=== PATIENT | female | born 1970 | race Caucasian/White ===

== ENCOUNTER → 2016-08-18 | Outpatient (CLI) | payer OTHER ==
--- NOTE | 2016-08-18 18:21 | MA ---
Screening Digital Mammogram With iCAD Indication: Routine screening. History of breast reduction surgery and surgical excision of fibroaden williams inner right breast in February 2016. Technique: Standard cephalocaudal and mediolateral oblique projections were obtained. This examinat ion was [facility]. Comparison: June 2015, June 2014, August 2013 and April 2011. Breast density: Type B. Findings: CAD was reviewed. The solid nodule in the inner right breast has been surgically removed. T he biopsy clip resides in the anterior inner right breast. No malignant-type calcification, dominant mass or architectural distortion has developed in either breast. Impression: Benign mammograms. BI-RADS 2: Benign finding. Recommendation: Routine screening is recommended in one year. [facility] will send a result letter to the patient. Negative mammography should not preclude additional workup of a clinically suspicious finding. The patient's information is entered into a reminder system with a target due date for her next mammo gram.
== END ==
LOC: FIMAGING 15:04
DX: Z12.31 Encounter for screening mammogram for malignant neoplasm of breast (principal); Z86.018 Personal history of other benign neoplasm
CPT/HCPCS: G0202

== ENCOUNTER 2017-02-16 17:03 | Emergency (ER) | payer OTHER ==
--- NOTE | 2017-02-16 17:11 | EDPHY ---
H & P Time Seen by Provider: 02/16/17 17:10 - Personal History Tetanus Vaccine Date: 2008 - Medical/Surgical History Hx Asthma: No Hx Chronic Respiratory Disease: No Hx Diabetes: No Hx Cardiac Disease: Yes Hx Renal Disease: No Hx Cirrhosis: No Hx Alcoholism: No Hx HIV/AIDS: No Hx Splenectomy or Spleen Trauma: No Other PMH: Blind, reynaud's, high cholesterol, vitamin d deficiency; breast reduction; fractured Great R toe - Social History Smoking Status: Never smoked Constitutional: Initial Vital Signs Temperature (C) 36.8 C 02/16/17 17:08 Heart Rate 91 02/16/17 17:08 Respiratory Rate 16 02/16/17 17:08 O2 Sat (%) 95 02/16/17 17:08 O2 Delivery Mode Room Air Allergies/Adverse Reactions: NSAIDS (Non-Steroidal Anti-Inflamma Allergy (Verified 02/29/16 16:05) vancomycin Allergy (Verified 05/22/15 13:14) Home Medications: Medication Instructions Recorded Atorvastatin Calcium [Lipitor 40 40 mg PO DAILY06 04/06/15 mg (*)] Calcium Carbonate [Oyster Shell 500 mg PO DAILY 04/19/15 Calcium 500 mg (*)] Cholecalciferol Vit D3 [Vitamin D3 1,000 units PO DAILY 04/19/15 (*)] Multivitamins [Multivitamin (*)] 1 each PO DAILY 04/19/15 Medical Decision Making - Diagnostics Imaging: Discussed imaging studies w/ call centre supervisor Radiologist ED Course/Re-evaluation: CHIEF COMPLAINT: Abdominal pain HISTORY OF PRESENT ILLNESS: This patient is a 46 year old female complaining of right lower quadrant abdominal pain onset around 3:00am this morning. She often gets pain and cramping associated with her menstrual cycle, but states that her current pain is different and more constant. She denies nausea or dysuria. She was able to eat and drink prior to arrival. She endorses some urinary frequency. She denies history of abdominal surgery. No fever, chills, vomiting, or other associated symptoms. REVIEW OF SYSTEMS: A 10 point review of systems was performed and is negative with the exception of the elements mentioned in the history of present illness. PHYSICAL EXAM: HR, BP, O2 Sat, RR. Temp noted General Appearance: Alert, well hydrated, appropriate, and non-toxic appearing. Head: Atraumatic without scalp tenderness or obvious injury Eyes: Pupils equal, round, reactive to light and accommodation, EOMI, no trauma , no injection. Ears: Clear bilaterally, no perforation, normal landmarks Nose: Atraumatic, no rhinorrhea, clear. Throat: There is no erythema or exudates, no lesions, normal tonsils, mucus membranes moist. Neck: Supple, nontender, no lymphadenopathy. Respiratory: No retractions, no distress, no wheezes, and no accessory muscle use. Lungs are clear to auscultation bilaterally. Cardiovascular: Regular rate and rhythm, no murmurs, rubs, or gallops. Good capillary refill all extremities. Gastrointestinal: Positive McBurney's point tenderness. Abdomen is soft, non- distended, no masses, no rebound, no guarding, no peritoneal signs. Musculoskeletal: Normal active ROM of all extremities, atraumatic. Neurological: Alert, appropriate, and interactive. The patient has normal DTRs and non-focal cranial nerves, motor, sensory, and cerebellar exam. Skin: No rashes, good turgor, no nodules on palpation. Past medical history: Raynaud's syndrome. Lymphedema. Blind Past surgical history: Noncontributory Family history: Noncontributory Social history: Single, not employed, does not abuse tobacco drugs or alcohol, lives on her own, blind DIAGNOSTICS/PROCEDURES/CRITICAL CARE TIME: Study: CT of the abdomen and pelvis Indication: abdominal pain right lower quadrant with McBurney's point tenderness Results: CT scan of the abdomen and pelvis with contrast was obtained. The results of the study are normal. The study was read by the radiologist, Dr. Alvarado Null. I viewed the images myself on the PACS system. DIFFERENTIAL DIAGNOSIS: The differential diagnosis for the patient's abdominal pain included but was not limited to ovarian cyst, pelvic inflammatory disease, ovarian torsion, urinary tract infection, ectopic , cholecystitis, and appendicitis. MEDICAL DECISION MAKING: This patient initially had right lower quadrant abdominal pain. Her CBC is completely unremarkable. Chemistries unremarkable. She has no urinary symptoms. CT scan of her abdomen pelvis with IV contrast do not elucidate any acute process. This patient is completely pain-free on reexamination. She will follow up with her regular doctor as needed. - Data Points Laboratory Results: Laboratory Results 02/16/17 17:25 02/16/17 17:25 02/16/17 02/16/1702/16/17 18:10 17:25 17:25 WBC RBC Hgb Hct MCV MCH MCHC RDW Plt Count MPV Neut % (Auto) Lymph % (Auto) [place] % (Auto) Eos % (Auto) Baso % (Auto) Nucleat RBC Rel Count Absolute Neuts (auto) Absolute Lymphs (auto) Absolute Monos (auto) Absolute Eos (auto) Absolute Basos (auto) Absolute Nucleated RBC Immature Gran % Immature Gran # Sodium 135 mEq/L mEq/L (134-144) Potassium 4.0 mEq/L mEq/L (3.5-5.2) Chloride 104 mEq/L mEq/L (97-110) Carbon Dioxide 21 mEq/l L mEq/l (22-31) Anion Gap 10 mEq/L mEq/L (8-16) BUN 10 mg/dL mg/dL (7-23) Creatinine 0.9 mg/dL mg/dL (0.6-1.0) Estimated GFR > 60 Glucose 126 mg/dL H mg/dL (70-100) Calcium 9.6 mg/dL mg/dL (8.5-10.4) Total Bilirubin 1.0 mg/dL mg/dL (0.1-1.4) Conjugated Bilirubin 0.3 mg/dL mg/dL (0.0-0.5) Unconjugated Bilirubin 0.7 mg/dL mg/dL (0.0-1.1) AST 24 IU/L IU/L (14-46) ALT 33 IU/L IU/L (9-52) Alkaline Phosphatase 98 IU/L IU/L (38-126) Total Protein 7.5 g/dL g/dL (6.3-8.2) Albumin 4.0 g/dL g/dL (3.5-5.0) Lipase 47.0 IU/L IU/L (23-300) Beta HCG, Qual NEGATIVE Urine Color YELLOW Urine Appearance CLEAR Urine pH 6.0 (5.0-7.5) Ur Specific [place] 1.011 (1.002-1.030) Urine Protein NEGATIVE (NEGATIVE) Urine Ketones NEGATIVE (NEGATIVE) Urine Blood NEGATIVE (NEGATIVE) Urine Nitrate NEGATIVE (NEGATIVE) Urine Bilirubin NEGATIVE (NEGATIVE) Urine Urobilinogen NEGATIVE EU EU (0.2-1.0) Ur Leukocyte Esterase NEGATIVE (NEGATIVE) Urine RBC 1-3 /hpf /hpf (0-3) Urine WBC 1-3 /hpf /hpf (0-3) Ur Epithelial Cells TRACE /lpf /lpf (NONE-1+) Urine Bacteria 1+ /hpf H /hpf (NONE SEEN) Urine Mucus TRACE /lpf /lpf (NONE-1+) Urine Glucose NEGATIVE (NEGATIVE) 02/16/17 17:25 WBC 8.07 10^3/uL 10^3/uL (3.80-9.50) RBC 5.09 10^6/uL 10^6/uL (4.18-5.33) Hgb 15.5 g/dL g/dL (12.6-16.3) Hct 46.0 % % (38.0-47.0) MCV 90.4 fL fL (81.5-99.8) MCH 30.5 pg pg (27.9-34.1) MCHC 33.7 g/dL g/dL (32.4-36.7) RDW 12.6 % % (11.5-15.2) Plt Count 312 10^3/uL 10^3/uL (150-400) MPV 10.2 fL fL (8.7-11.7) Neut % (Auto) 71.4 % % (39.3-74.2) Lymph % (Auto) 21.7 % % (15.0-45.0) [place] % (Auto) 5.3 % % (4.5-13.0) Eos % (Auto) 0.7 % % (0.6-7.6) Baso % (Auto) 0.5 % % (0.3-1.7) Nucleat RBC Rel Count 0.0 % % (0.0-0.2) Absolute Neuts (auto) 5.76 10^3/uL 10^3/uL (1.70-6.50) Absolute Lymphs (auto) 1.75 10^3/uL 10^3/uL (1.00-3.00) Absolute Monos (auto) 0.43 10^3/uL 10^3/uL (0.30-0.80) Absolute Eos (auto) 0.06 10^3/uL 10^3/uL (0.03-0.40) Absolute Basos (auto) 0.04 10^3/uL 10^3/uL (0.02-0.10) Absolute Nucleated RBC 0.00 10^3/uL 10^3/uL (0-0.01) Immature Gran % 0.4 % % (0.0-1.1) Immature Gran # 0.03 10^3/uL 10^3/uL (0.00-0.10) Sodium Potassium Chloride Carbon Dioxide Anion Gap BUN Creatinine Estimated GFR Glucose Calcium Total Bilirubin Conjugated Bilirubin Unconjugated Bilirubin AST ALT Alkaline Phosphatase Total Protein Albumin Lipase Beta HCG, Qual Urine Color Urine Appearance Urine pH Ur Specific [place] Urine Protein Urine Ketones Urine Blood Urine Nitrate Urine Bilirubin Urine Urobilinogen Ur Leukocyte Esterase Urine RBC Urine WBC Ur Epithelial Cells Urine Bacteria Urine Mucus Urine Glucose Departure - Departure Disposition: Home, Routine, Self-Care Clinical Impression: Abdominal pain Qualifiers: Abdominal location: right lower quadrant Qualified Code(s): R10.31 - Right lower quadrant pain Condition: Good Instructions: Acute Abdominal Pain (ED) Additional Instructions: Return if worse Referrals: Lian Cameron MD [Primary Care Provider] - As per Instructions
[2017-02-16 17:12] VITALS: TEMP 98.2
[2017-02-16 17:40] VITALS: BP 157/99; RESP 20
[2017-02-16 17:51] LABS: % IMMATURE GRANULYOCYTES 0.4 % (0.0-1.1); ABSOLUTE IMMATURE GRANULOCYTES 0.03 10^3/uL (0.00-0.10); ADD DIFF? NO; ADD MORPH? NO; ADD SCAN? NO; ATYPICAL LYMPHOCYTE FLAG 10 (0-99); FRAGMENT RBC FLAG 0 (0-99); HEMOGLOBIN 15.5 g/dL (12.6-16.3); LEFT SHIFT FLG 0 (0-99); LIPEMIA HEMOLYSIS FLAG 80 (0-99); MEAN CELL HEMOGLOBIN 30.5 pg (27.9-34.1); MEAN CELL HEMOGLOBIN CONCENTR. 33.7 g/dL (32.4-36.7); MEAN CELL VOLUME 90.4 fL (81.5-99.8); MEAN PLATELET VOLUME 10.2 fL (8.7-11.7); PLATELET CLUMPS FLAG 0 (0-99); PLATELET COUNT 312 10^3/uL (150-400); RED BLOOD CELL COUNT 5.09 10^6/uL (4.18-5.33); RED CELL DISTRIBUTION WIDTH 12.6 % (11.5-15.2)
[2017-02-16 18:12] LABS: ALANINE AMINOTRANSFERASE 33 IU/L (9-52); ALKALINE PHOSPHATASE 98 IU/L (38-126); ANION GAP 10 mEq/L (8-16); ASPARTATE AMINOTRANSFERASE 24 IU/L (14-46); BILIRUBIN-CONJUGATED 0.3 mg/dL (0.0-0.5); BILIRUBIN-UNCONJUGATED 0.7 mg/dL (0.0-1.1); CALCIUM 9.6 mg/dL (8.5-10.4); CARBON DIOXIDE 21 mEq/l (22-31); CHLORIDE 104 mEq/L (97-110); CREATININE 0.9 mg/dL (0.6-1.0); GLOMERULAR FILTRATION RATE > 60; GLUCOSE 126 mg/dL (70-100); SODIUM 135 mEq/L (134-144); TOTAL PROTEIN 7.5 g/dL (6.3-8.2)
[2017-02-16] MEDS ORDERED: IOPAMIDOL (ISOVUE-300) 100 ML BTL ONE (18:15)
[2017-02-16 18:48] LABS: COLOR YELLOW; LEUKOCYTE ESTERASE,URINE NEGATIVE (NEGATIVE); NITRITE,URINE NEGATIVE (NEGATIVE)
[2017-02-16 18:51] LABS: BACTERIA 1+ /hpf (NONE SEEN); MUCUS TRACE /lpf (NONE-1+)
[2017-02-16 19:10] VITALS: PULSE 66; O2SAT 96
== END 2017-02-16 19:10 | disposition home or self-care (01) ==
DX: R10.31 Right lower quadrant pain (principal)
CPT/HCPCS: Q9967

== ENCOUNTER 2017-09-22 07:35 | Observation (INO) | payer OTHER ==
[2017-09-22] MEDS ORDERED: LIDOCAINE 1% 2 ML INJ ID PRN (07:46)
[2017-09-22] MEDS ORDERED: LR 1,000 ML IV ONE (07:46)
[2017-09-22] MEDS ORDERED: BUPIVACAINE 0.25% 30 ML SDV ONE (07:52)
[2017-09-22] MEDS ORDERED: MIDAZOLAM 2 MG/2 ML VIAL IVP ONE ×2 (08:26→08:30)
--- NOTE | 2017-09-22 08:26 | PDANEPAE ---
ANE History of Present Illness here for robotic hyst ANE Past Medical History - Cardiovascular History Hx Hypertension: No Hx Arrhythmias: No Hx Chest Pain: No Hx Coronary Artery / Peripheral Vascular Disease: No Hx CHF / Valvular Disease: No Hx Palpitations: No Cardiovascular History Comment: high chol- controls with medications prn - Pulmonary History Hx COPD: No Hx Asthma/Reactive Airway Disease: No Hx Recent Upper Respiratory Infection: No Hx Oxygen in Use at Home: No Hx Sleep Apnea: No Sleep Apnea Screening Result - Last Documented: Negative - Neurologic History Hx Cerebrovascular Accident: No Hx Seizures: No Hx Dementia: No - Endocrine History Hx Diabetes: No - Renal History Hx Renal Disorders: Yes Renal History Comment: vanco compromises kidneys. compromised d/t medications a couple years ago - Liver History Hx Hepatic Disorders: No - Neurological & Psychiatric Hx Hx Neurological and Psychiatric Disorders: No - Cancer History Hx Cancer: No - Congenital Disorder History Hx Congenital Disorders: No - GI History Hx Gastrointestinal Disorders: No - Other Health History Other Health History: CELLULITIS AND FASCITIS LLE 03/2015. RANYAUD. INTERMITTENT LYMPHEDEMA LLE USES PRESSURE STOCKING ON LT. LOW BACK PAIN. VITAMIN D DEFICIENCY - Chronic Pain History Chronic Pain: No - Surgical History Prior Surgeries: KAYA BREAST REDUCTION. lumpectomy ANE Review of Systems Review of systems is: negative Review of Systems: - Exercise capacity Exercise capacity: >=4 METS METS (RN): 4 METS ANE Patient History - Allergies Allergies/Adverse Reactions: NSAIDS (Non-Steroidal Anti-Inflamma Allergy (Verified 09/08/17 11:52) d/t compromised kidneys vancomycin Allergy (Verified 09/08/17 11:52) comprises kidneys - Home Medications Home medications: home medication list seen and reviewed Home Medications: Atorvastatin Calcium [Lipitor 40 mg (*)] 40 mg PO DAILY 04/06/15 [Last Taken 05/30] Cholecalciferol Vit D3 [Vitamin D3 (*)] 1,000 units PO DAILY 04/19/15 [Last Taken 09/15/17] Multivitamins [Multivitamin (*)] 1 each PO DAILY 04/19/15 [Last Taken 09/15/17] Ferrous Sulfate [Ferrous Sulf 325 MG (*)] 325 mg PO DAILY 09/08/17 [Last Taken 09/15/17] Herbals/Supplements -Info Only 1 ea PO DAILY 09/08/17 [Last Taken 09/15/17] - NPO status NPO Status: no food or drink >8 hours NPO Since - Liquids (Date): 09/22/17 NPO Since - Liquids (Time): 01:00 NPO Since - Solids (Date): 09/21/17 NPO Since - Solids (Time): 23:00 - Smoking Hx Smoking Status: Never smoked - Family Anes Hx Family Hx Anesthesia Complications: none ANE Labs/Vital Signs - Vital Signs Height: 160.02 cm Weight: 120.202 kg ANE Physical Exam - Airway Neck exam: FROM Mallampati Score: Class 2 Mouth exam: normal dental/mouth exam - Pulmonary Pulmonary: no respiratory distress - Cardiovascular Cardiovascular: regular rate and rhythym - ASA Status ASA Status: III ANE Anesthesia Plan Anesthesia Plan: general endotracheal anesthesia
[2017-09-22] MEDS ORDERED: ceFAZolin 3 GM in STERILE WATER INJ 30 ML IV ONE (08:30)
[2017-09-22] MEDS ORDERED: PHENAZOPYRIDINE HCL 100 MG TAB PO ONE (08:30)
[2017-09-22] MEDS ORDERED: HEPARIN 5,000 UNIT/0.5 ML SYR SC ONE (08:30)
[2017-09-22] MEDS ORDERED: fentaNYL 250 MCG/5 ML INJ ONE (09:00)
[2017-09-22] MEDS ORDERED: PROPOFOL/EMULSION 500 MG/50 ML BOTTLE IV ONE (09:02)
--- NOTE | 2017-09-22 09:18 | PDGENHP ---
History & Physical Chief Complaint: Preop: Endometrial hyperplasia, simple, without atypia History of Present Illness: Michelle is a very pleasant 47 yo female who I've been working with in clinic on new/evolving AUB. She had a pelvic US that revealed generally normal-sized uterus, no obvious polyps or fibroids. She had an EBx in the office that came back ultimately with Endometrial hyperplasia, simple, without atypia. Discussed options of Mirena vs progestin tx vs hysterectomy and she'd much prefer to have uterus removed. She has quite debilitating mid-cycle [place] pain and would also like ovaries removed. Discussed risks and benefits of this given her age and pre-menopausal status. Pertinent Past, Social, Family History: See full H&P, Morbid obesity, blindness. Relevant Physical Exam: From office: NAD. Regular rate and rhythm, lungs clear bilaterally. Belly soft, non-distended, non-tender. Assessment & Plan Assessment: Preop: Robotically-assisted TLH, BSO, cystoscopy. Extensive discussion on R/B/A in the office. Patient strongly prefers definitive tx with hysterectomy. Discussed R/B/A of oophorectomy at her age and she'd strongly prefer ovary removal. Discussed increased risks intraoperatively due to her size, discussed possibility of needing to convert to open. Preop meds: Pyridium 100mg PO x 1 PREOP, Weight-based Ancef, heparin SubQ 5k preop. Plan for one night stay in hospital and home AM of POD1. DEBBIE
[2017-09-22] MEDS ORDERED: ONDANSETRON 4 MG/2 ML VIAL ONE (09:56)
[2017-09-22] MEDS ORDERED: DEXAMETHASONE 4 MG/ML VIAL ONE (09:56)
[2017-09-22] MEDS ORDERED: BUPIVACAINE/EPI 0.5% 30 ML SDV ONE (10:17)
[2017-09-22] MEDS ORDERED: PROMETHAZINE HCL 25 MG/ML INJ IVP PRN (10:55)
[2017-09-22] MEDS ORDERED: ALBUTEROL 3 ML DEYVIAL IH PRN (10:55)
[2017-09-22] MEDS ORDERED: LR 500 ML IV PRN (10:55)
[2017-09-22] MEDS ORDERED: NS 500 ML IV PRN (10:55)
[2017-09-22] MEDS ORDERED: ONDANSETRON 4 MG/2 ML VIAL IVP PRN ×2 (10:55→15:33)
[2017-09-22] MEDS ORDERED: NALOXONE HCL 0.4 MG/ML INJ IVP PRN ×2 (10:55→13:02)
[2017-09-22] MEDS ORDERED: LABETALOL HCL 5 MG/ML 20 ML MDV ONE ×2 (11:36→11:37)
[2017-09-22] MEDS ORDERED: SUGAMMADEX SODIUM 200 MG/2 ML VIAL IVP ONE ×2 (12:36→12:42)
[2017-09-22] MEDS ORDERED: LABETALOL HCL 5 MG/ML 20 ML MDV IVP PRN (13:02)
[2017-09-22] MEDS ORDERED: HYDROmorphONE/DILAUDID 2 MG/ML INJ ONE (13:07)
[2017-09-22] MEDS ORDERED: fentaNYL 100 MCG/2 ML INJ ONE (13:07)
[2017-09-22] MEDS: HYDROmorphONE/DILAUDID 1 MG/ML INJ IVP PRN ×4 (13:10→14:11)
[2017-09-22] MEDS: fentaNYL 100 MCG/2 ML INJ IVP PRN ×2 (13:11→13:33)
[2017-09-22] MEDS ORDERED: ONDANSETRON DISINTEGRATING 4 MG TAB PO PRN (15:33)
[2017-09-22] MEDS ORDERED: MAGNESIUM HYDROXIDE 30 ML UDCUP PO PRN (15:33)
[2017-09-22] MEDS ORDERED: POLYETHYLENE GLYCOL 3350 17 GM PKT PO PRN (15:33)
[2017-09-22] MEDS ORDERED: LACTULOSE 20 GM/30 ML UDCUP PO PRN (15:33)
[2017-09-22] MEDS ORDERED: LR 1,000 ML IV SCH (15:33)
[2017-09-22] MEDS ORDERED: BISACODYL 10 MG SUPP PR PRN (15:33)
[2017-09-22] MEDS: OXYCODONE/APAP 5/325 TAB PO PRN ×2 (16:15→22:07)
[2017-09-22] MEDS: KETOROLAC 30 MG/1 ML SDV IVP SCH ×2 (17:01→23:59)
[2017-09-22] MEDS ORDERED: HYDROmorphONE/DILAUDID 2 MG/ML INJ IVP PRN (17:15)
--- NOTE | 2017-09-22 17:22 | POSTOPPROG ---
Post Op Note Date of Operation: 09/22/17 Surgeon: Arpit Long Junior Copywriter: ALYSON Flynn Anesthesia: GET(General Endotracheal) Pre-op Diagnosis: Simple endometrial hyperplasia, without atypia, AUB Post-op Diagnosis: Same, endometriosis, intra-abdominal adhesions Indication: Pelvic pain, abnormal uterine bleeding Procedure: Robotically-assisted TLH, BSO, cystoscopy Findings: Stage I endometriosis, otherwise normal anatomy Inf/Abcess present in the surg proc area at time of surgery?: No EBL: 100cc Complications: None Specimen(s): Uterus, cervix, bilateral tubes and ovaries
--- NOTE | 2017-09-22 17:27 | SUROPNOTE ---
[facility] Operative Report - Surgery Date of Operation: 09/22/17 Surgeon: Arpit Long MD Retail Greeting Card Merchandiser: ALYSON Flynn Anesthesia: GET(General Endotracheal) Pre-op Diagnosis: Simple endometrial hyperplasia, without atypia, AUB Post-op Diagnosis: Same, endometriosis, intra-abdominal adhesions Indication: Pelvic pain, abnormal uterine bleeding, Simple endometrial hyperplasia without atypia Procedure: Robotically-assisted TLH, BSO, cystoscopy Findings: Normal visible aspects of liver, stomach, large and small intestine. Slightly enlarged boggy uterus, normal right tube and ovary. Right ovary with small power-burn lesions suspicious for endometriosis. Left tube and ovary adherent to the left ovarian fossa in adhesion complex also appearing consistent with endometriosis. Peritoneal layers thick and fibrosed - possibly due to long standing inflammation. No ovarian cysts, did not visualize appendix. Inf/Abcess present in the surg proc area at time of surgery?: No EBL: 100cc Complications: None Specimen(s): Uterus, cervix, bilateral tubes and ovaries Technique: The patient was taken to the operating room where general anesthesia induced with an endotracheal tube. A time-out was performed. She was given weight-based antibiotics before any incisions were made. She was positioned in low lithotomy in yellow-fin stirrups and an exam under anesthesia was performed. She was prepped and draped in normal sterile fashion. A Acosta catheter and uterine manipulator (Soni)were placed. Turning our attention to port placement, we began by marking and then injecting local anesthetic subcutaneously at our planned trocar sites. A stab incision was made with the scalpel at the base of the umbilicus and the bariatric Veres needs was carefully inserted into the abdomen with discrete "pops" appreciated. Intra- abdominal placement suggests with low initial insufflation pressures. The abdomen was insufflated to 20 mmHg with CO2 gas for port placement then reduced to 15mm Hg for the remainder of the case. A 10mm plastic port was placed approximately 3cm above the umbilicus. Camera inserted and a scan of the abdominal cavity revealed no evidence of injury upon entry. Additional lateral ports were placed evenly space in an arc from that umbilical site - 4 additional in total, all robotic 8mm ports except one 10mm human assist port in the LUQ. The patient was placed in steep Trendelenburg position and bowel flipped cephalad to provide visualization of pelvic structures. Difficult case throughout due to large degree of visceral fat and poor ability to manipulate the uterus due to patients size. Upon inspection of the abdomen, findings were as noted above. Evidence of scattered endo throughout the pelvis (power-burn lesions). Left adnexa all involved in adhesion complex between left tube and ovary within the left ovarian fossa. Some thin, but also some thicker, dense adhesions. Nearly all retroperitoneal spaces thick and planes obliterated by fibrotic seemingly chronic inflammatory changes, potentially also related to endometriosis. The robot was side-docked at the patient's left hip and instruments introduced into the abdomen under direct visualization. Monopolar scissors as well as fenestrated bipolar forceps were used in addition to a Prograsp for the fourth arm. We began by directly visualizing peristalsing ureters on both sides but difficult due to adipose tissue - ureters felt to be far distant from our planned dissection sites. We first began by elevating and amputation the left tube and ovary with bipolar and monopolar cautery. Dense adhesions carefully devided on this side. Following this we came through the left round ligament - the anterior and posterior leaves of the broad ligament. Tho posterior leaf was brought down to the colpotomy cup which was quite difficult to appreciate, and the anterior was brought down to the level of the peritoneal bladder reflection and then across to start the bladder flap to the midline. The uterine arteries on that side were skeletonized and cauterized, but not divided yet. We next turned our attention of the right side where the same procedure was performed in the same fashion - amputating the right tube and ovary, coming through the right round ligament and coming across with the anterior leaf of the broad on the left side to meet the dissection on the right completing the bladder flap. Then completed careful dissection of the bladder off the lower uterine segment and cervix which came down nicely with minimal scar tissue. The right uterines were skeletonized, cauterized and then divided. We lastly divided the left uterines. Following this the colpotomy cup was nicely visible circumferentially. The monopolar scissors were used to create the colpotomy - combination of cut and coag current. The uterus was removed vaginally with both fallopian tubes without issue. A DEBRA drainage bulb was placed in the vagina to maintain pneumoperitoneum during cuff closure. A 9" 180 0-Vloc suture was passed through the assistant property manager port and instruments changed for needle delivery driver. The vaginal cuff was closed laparoscopically with a single running stitch with care taken to include healthy bites of bilateral uterosacral ligaments to help prevent against future prolapse. The vaginal cuff and pedicles were then irrigated with normal saline and found to be hemostatic after application of hemostatic cellolose/starch agent. Both ureters were seen to be freely peristalsing, distant from any surgical sites. The robot was undocked. The acosta was removed. Cystoscopy was performed confirming intact bladder with no apparent thermal or sharp injuries. Bilateral UOs demonstrated strong efflux of Pyridium-stained urine. Following this the acosta was not replaced, a vaginal packing was not placed. The trocars were removed after the two 10mm fascial sites were closed with a single 0-vicryl suture each, placed laparoscopically under direct visualization. The other trocars removed and the abdomen was desufflated. The skin incisions were closed with 40 monocryl with single subcuticular stitches and then covered with Dermabond. The patient tolerated the procedure well. All sponge, lap and needle and instrument counts were announced as correct x2. The patient was taken to the PACU in stable condition. I was scrubbed and present for the entire case.
[2017-09-22] MEDS: SENNOSIDES/DOCUSATE SODIUM TAB PO SCH (20:09)
[2017-09-22] MEDS: ENOXAPARIN 40 MG/0.4 ML SYR SC SCH (20:21)
[2017-09-23] MEDS: KETOROLAC 30 MG/1 ML SDV IVP SCH (05:17)
[2017-09-23 05:38] LABS: PLATELET COUNT 230 10^3/uL (150-400)
[2017-09-23 06:12] VITALS: RESP 18
[2017-09-23 08:02] VITALS: TEMP 97
[2017-09-23] MEDS: OXYCODONE/APAP 5/325 TAB PO PRN ×2 (08:20→14:17)
[2017-09-23] MEDS: ENOXAPARIN 40 MG/0.4 ML SYR SC SCH (09:32)
[2017-09-23 09:45] VITALS: BP 150/81; PULSE 78; O2SAT 96
[2017-09-23] MEDS ORDERED: IBUPROFEN 600 MG TAB PO SCH (13:04)
--- NOTE | 2017-09-23 13:33 | PDDCSUM ---
Discharge Summary Discharge Summary: Michelle had an uncomplicated procedure, 100cc EBL, no complications. Castro was removed in the OR. She did well over her first hopistal night and on POD1 AM she was ambulating, voiding, tolerating diet - pain well controlled with PO pain medications. Discharged home with plan to f/u with me in 2 and 6 wks for postop checks. She did recieved prophylactic Lovenox dosing (40mg subcutaneous BID) while in-house. We discussed risks/benefits of continuing that regimen at home for her, and elected not to continue that. She voiced preference and understanding for that plan, and is aware of the importance of staying active/ mobile to prevent blood clots.
[2017-09-23] MEDS: SENNOSIDES/DOCUSATE SODIUM TAB PO SCH (14:18)
== END 2017-09-23 14:25 | disposition home or self-care (01) ==
LOC: F3E 07:35 → FOB 14:30
PROVIDERS: ADMIT Obstetrics & Gynecology; ATTEND Obstetrics & Gynecology
DX: N85.01 Benign endometrial hyperplasia (principal); N80.9 Endometriosis, unspecified; R10.2 Pelvic and perineal pain; N94.6 Dysmenorrhea, unspecified; E78.5 Hyperlipidemia, unspecified; I73.00 Raynaud's syndrome without gangrene; E55.9 Vitamin D deficiency, unspecified; E66.01 Morbid (severe) obesity due to excess calories; Z68.42 Body mass index [BMI] 45.0-49.9, adult
CPT/HCPCS: 58571; G0378; J0171; J0690; J1100; J1170; J1644; J1650; J1885; J2250; J2405; J2704; J3010

== ENCOUNTER 2017-10-01 19:58 | Observation (INO) | payer OTHER ==
--- NOTE | 2017-10-01 20:59 | EDPHY ---
H & P Stated Complaint: Lower back pain for 2 days, Hysterectomy on Time Seen by Provider: 10/01/17 20:56 - Personal History LMP (Females 10-55): Hysterectomy Current Tetanus/Diphtheria Vaccine: Yes Current Tetanus Diphtheria and Acellular Pertussis (TDAP): Yes Tetanus Vaccine Date: 2008 - Medical/Surgical History Hx Asthma: No Hx Chronic Respiratory Disease: No Hx Diabetes: No Hx Cardiac Disease: Yes Hx Renal Disease: No Hx Cirrhosis: No Hx Alcoholism: No Hx HIV/AIDS: No Hx Splenectomy or Spleen Trauma: No Other PMH: Blind, reynaud's, high cholesterol, vitamin d deficiency; breast reduction; fractured Great R toe, Hysterectomy - Social History Smoking Status: Never smoked Constitutional: Initial Vital Signs Temperature (C) 36 C 10/01/17 20:19 Heart Rate 89 10/01/17 20:19 Respiratory Rate 18 10/01/17 20:19 O2 Sat (%) 94 10/01/17 20:19 O2 Delivery Mode Room Air Allergies/Adverse Reactions: NSAIDS (Non-Steroidal Anti-Inflamma Allergy (Verified 10/01/17 20:21) d/t compromised kidneys vancomycin Allergy (Verified 10/01/17 20:21) comprises kidneys Home Medications: Medication Instructions Recorded Atorvastatin Calcium [Lipitor 40 40 mg PO DAILY 04/06/15 mg (*)] Cholecalciferol Vit D3 [Vitamin D3 1,000 units PO DAILY 04/19/15 (*)] Multivitamins [Multivitamin (*)] 1 each PO DAILY 04/19/15 Ferrous Sulfate [Ferrous Sulf 325 325 mg PO DAILY 09/08/17 MG (*)] Herbals/Supplements -Info Only 1 ea PO DAILY 09/08/17 oxyCODONE/APAP 5/325 [Percocet 1 - 2 tab PO Q4HRS PRN #20 tab 09/23/17 5/325 (*)] Medical Decision Making - Diagnostics Imaging: I viewed and interpreted images myself ED Course/Re-evaluation: CHIEF COMPLAINT: Back pain. HISTORY OF PRESENT ILLNESS: The patient is a blind 47 y/o female arriving with her complaining of back pain onset Thursday, 2 days ago. She had a hysterectomy surgery last week and has some associated pain around the incision site. She has been recovering well since then. Two days ago she noticed right- sided lower back pain that has progressively worsened and is not improving with ibuprofen or Percocet. She is unable to sit up in bed without severe pain and has barely been able to walk since onset. She denies weakness, paresthesias, fever, trauma, or recent illness. REVIEW OF SYSTEMS: A 10 point review of systems was performed and is negative with the exception of the elements mentioned in the history of present illness. PHYSICAL EXAM: HR, BP, O2 Sat, RR. Temp noted General Appearance: Alert, well hydrated, appropriate, obese, and non-toxic appearing. Head: Atraumatic without scalp tenderness or obvious injury Eyes: Pupils equal, round, reactive to light and accommodation, EOMI, no trauma , no injection. Nose: Atraumatic, no rhinorrhea, clear. Throat: Mucus membranes moist. Neck: Supple Respiratory: No retractions, no distress, no wheezes, and no accessory muscle use. Lungs are clear to auscultation bilaterally. Cardiovascular: Regular rate and rhythm, no murmurs, rubs, or gallops. Good capillary refill all extremities. Gastrointestinal: Abdomen is soft, non-tender, non-distended, no masses, no rebound, no guarding, no peritoneal signs. Musculoskeletal: Normal active ROM of all extremities, atraumatic. Positive straight leg raise. Neurological: Alert, appropriate, and interactive. The patient is blind, otherwise has non-focal cranial nerves, motor, sensory, and cerebellar exam. Skin: No rashes, good turgor, no nodules on palpation. PAST MEDICAL HISTORY: Blindness, Raynaud's, high cholesterol, vitamin d deficiency PAST SURGICAL HISTORY: breast reduction, hysterectomy SOCIAL HISTORY: , Lee, at bedside. Lives in [place]. Prior medical records reviewed including ED visit for abdominal pain 02/16/17. DIAGNOSTICS/PROCEDURES/CRITICAL CARE TIME: Lumbar x-ray: DIFFERENTIAL DIAGNOSIS: The differential diagnosis for the patient's back pain included but was not limited to musculoskeletal pain, epidural abscess, herniated disk, spinal fracture, and intra-abdominal causes including urinary system. MEDICAL DECISION MAKING: This is a 47 y/o female with blindness who presents with a 2-day history of worsening lumbar back pain in the setting of recent hysterectomy. She is lying supine in the bed and unable to lift herself to a seated position nor lift either leg without severe pain. No evidence of acute cauda equina syndrome. Due to inability to walk and care for herself at home, I've recommended admission for pain management, which she agrees to. Lumbar x-rays ordered. 100mcg IV Fentanyl and 10mg IV Decadron ordered. Dr. Mcrae accepts admission. Departure - Departure Disposition: [facility] Inpatient Acute Clinical Impression: Intractable back pain Condition: Fair Referrals: Lian Cameron MD [Primary Care Provider] - As per Instructions Report Scribed for: Quincy Rainey Report Scribed by: Carie Simpson Date of Report: 10/01/17 Time of Report: 20:58
[2017-10-01] MEDS ORDERED: DEXAMETHASONE 10 MG/ML VIAL IVP ONE (21:08)
[2017-10-01] MEDS ORDERED: fentaNYL 100 MCG/2 ML INJ IVP ONE (21:09)
[2017-10-01] MEDS ORDERED: ONDANSETRON 4 MG/2 ML VIAL IVP PRN (21:59)
[2017-10-01] MEDS ORDERED: ONDANSETRON DISINTEGRATING 4 MG TAB PO PRN (21:59)
[2017-10-01] MEDS ORDERED: ACETAMINOPHEN 325 MG TAB PO PRN (21:59)
--- NOTE | 2017-10-01 22:10 | PDGENHP ---
History and Physical - Chief Complaint back pain - History of Present Illness The patient is a blind 47 y/o female complaining of back pain onset Thursday, 2 days ago. She woke up with the back pain. She had a hysterectomy surgery last week and has some associated pain around the incision site. She has been recovering well since then. Two days ago she noticed right-sided lower back pain that has progressively worsened and is not improving with ibuprofen or Percocet. She is unable to sit up in bed without severe pain and has barely been able to walk since onset. She denies weakness, paresthesias, fever, trauma , or recent illness. Movement makes it worse. She does not have a hx of back pain. Her is also blind. She cannot take care of herself. No cp, sob, fever, n/v/d, radiculopathy PMHx/PSHx: congential Blindness, reynaud's, high cholesterol, vitamin d deficiency; breast reduction; fractured Great R toe, Hysterectomy SocHx: no T/E/I. to Lee who is at bedside FmHx: non contributory History Information - Allergies/Home Medication List Allergies/Adverse Reactions: NSAIDS (Non-Steroidal Anti-Inflamma Allergy (Verified 10/01/17 20:21) d/t compromised kidneys vancomycin Allergy (Verified 10/01/17 20:21) comprises kidneys Home Medications: Cholecalciferol Vit D3 [Vitamin D3 (*)] 1,000 units PO DAILY 04/19/15 [Last Taken 09/15/17] Multivitamins [Multivitamin (*)] 1 each PO DAILY 04/19/15 [Last Taken 09/15/17] Herbals/Supplements -Info Only 1 ea PO DAILY 09/08/17 [Last Taken 09/15/17] Docusate Sodium [Colace 100 MG (*)] 100 mg PO BID 10/01/17 [Last Taken Unknown] Ibuprofen [Motrin (*)] 400 - 600 mg PO BID PRN 10/01/17 [Last Taken Unknown] I have personally reviewed and updated: medical history, social history - Social History Smoking Status: Never smoked Review of Systems Review of Systems: ROS: 10pt was reviewed & negative except for what was stated in HPI & below Physical Exam Physical Exam: Temp Pulse Resp BP Pulse Ox 36.8 C 71 17 176/103 H 98 10/01/17 22:03 10/01/17 22:03 10/01/17 22:03 10/01/17 22:03 10/01/17 22:03 O2 (L/minute) 2 Constitutional: no apparent distress Ears, Nose, Mouth, Throat: moist mucous membranes, hearing normal Cardiovascular: regular rate and rhythym, No edema Respiratory: no respiratory distress, no rales or rhonchi, clear to auscultation Gastrointestinal: normoactive bowel sounds, soft, non-tender abdomen Genitourinary: no bladder fullness Skin: warm, normal color Musculoskeletal: other (difficulty lifting leg bilaterally r>L due to pain ) Neurologic: AAOx3 Psychiatric: interacting appropriately, not anxious, not encephalopathic Lymph, Heme, Immunologic: No petechiae Assessment & Plan Assessment: #Intractable back pain (Acute) Plan: Admit pain mgmt await lumbar xr hold off on MRI etiology is likely muscular Steroids provided in the E.D., will order Medrol dose pack to start tomorro PT/OT SCD's Full code
[2017-10-01] MEDS ORDERED: LIDOCAINE 4%/MENTHOL 1% PATCH TD SCH (22:15)
[2017-10-02] MEDS: DIAZEPAM 5 MG TAB PO PRN ×2 (02:22→09:11)
[2017-10-02 04:24] VITALS: RESP 16
[2017-10-02 04:42] LABS: PLATELET COUNT 278 10^3/uL (150-400)
[2017-10-02] MEDS ORDERED: D50W 25 GM/50 ML SYR IVP PRN (06:24)
[2017-10-02] MEDS: oxyCODONE IR 5 MG TAB PO PRN ×2 (06:39→12:25)
[2017-10-02] MEDS ORDERED: methylPREDNISolone 4 MG TAB PO SCH ×2 (07:30→13:00)
[2017-10-02] MEDS ORDERED: PATCH REMOVAL 1 EA PATCH TD SCH (09:00)
[2017-10-02] MEDS ORDERED: Herbals/Supplements -Info Only PO SCH (09:00)
[2017-10-02] MEDS ORDERED: MULTIVITAMINS 1 EACH TAB PO SCH (09:00)
[2017-10-02] MEDS ORDERED: CHOLECALCIFEROL VIT D3 1,000 UNITS TAB PO SCH (09:00)
[2017-10-02] MEDS ORDERED: DOCUSATE SODIUM 100 MG CAP PO SCH (09:00)
--- NOTE | 2017-10-02 09:06 | WOCRNPDOC ---
WOCRN Advanced Assessment Note - Skin Integrity Problem, Advanced Assess Right Anterior Lower Leg Dressing Type: Open to Air Exudate Amount: None Exudate Characteristic(s): None Integumentary Issue Intervention: Lotion/Cream Applied (will have nursing apply skin repair lotion) Jazmine Wound Tissue: Hemosiderin Staining, Venous Dermatitis Jazmine Wound Swelling: None Site Odor: None Site Measurement - Head-to-Toe Length X Width X Depth (cm): [id number] Skin Integrity Problem Comment: Epithelialized wound note to R anterior LE. There is a very thin, superficial layer of epithelium covering, and site is fragile in appearance. Per patient, this is a venous stasis wound that "comes and goes." Periwound skin indicative of long-standing venous insufficiency. Patient reports wearing compression at home, but currently is not. Measured both legs for Spandagrip, moderate compression. Will have nursing apply in a.m. , and remove at HS. Wound care does not need to follow this patient ongoing.
[2017-10-02] MEDS: INSULIN LISPRO 100 UNIT/ML SC SCH ×2 (09:08→12:28)
[2017-10-02 11:21] VITALS: BP 162/92; PULSE 82; TEMP 98.2; O2SAT 95
--- NOTE | 2017-10-02 18:11 | GDS ---
[f rep st] DISCHARGE SUMMARY DISCHARGE DIAGNOSIS: Intractable back pain. HISTORY OF PRESENT ILLNESS: The patient is a pleasant 47-year-old female with a past medical history of congenital blindness who presented to [facility] on 10/01/2017, with complaints o f severe low back pain. She had undergone a hysterectomy the week prior to coming into the hospital. She stated that she was trying to get out of the couch and moving in an awkward fashion due to her recent hysterectomy when she developed severe bilateral lower back pain. She does not localize the p ain to the spine, but rather to the upper buttock region on both the left and the right. She denies having any leg symptoms. Today she states her pain has been well controlled. She feels that she got a lot of benefit from taking the steroids that were prescribed. She does state, as well, that she h as Percocet at home and would not need a prescription for Percocet at this time. She worked with [facility] therapy the morning prior to discharge and stated she felt well with this that she could return back to home with a plan of continuing anti-inflammatories for the coming days. HOSPITAL COURSE BY PROBLEM: 1. Low back pain: Suspecting likely a muscular issue. She did reasonably well with anti-inflammato candie, as needed oxycodone, as well as needed diazepam for muscle spasms. Prescriptions of these have been provided today. I have also provided a prescription for outpatient physical therapy. She stat es that she has already scheduled a consult with physical therapy next week. 2. Elevated blood pressures: Suspecting pain response. She does not have any pre-existing history of hypertension. I would recommend to continue to follow as an outpatient. 3. Impaired fasting glucose: Patient did have a hemoglobin A1c during this hospitalization which wa s mildly elevated at 6.3. She states that she was already aware of this diagnosis and is working wit h her primary doctor on monitoring. 4. Congenital blindness: With this history, we discussed using Medrol Dosepak. Consider that it ma y be somewhat difficult for her to keep good compliance with the pack. We decided we would switch to prednisone at 2 tablets daily for the next 5 days. EXAMINATION ON DAY OF DISCHARGE: VITAL SIGNS: Temperature 36.8, blood pressure 176/103, heart rate 71, respirations 17, satting 98% on room air. GENERAL: Patient resting comfortably in bed. She is sitting upright at the side of the bed currently. HEART: Regular. No murmurs. LUNGS: Clear on au scultation. Normal respiratory effort. ABDOMEN: Soft, nontender, nondistended. Her surgical sites from recent hysterectomy appear to be well healed without any significant erythema or purulence. Ab domen otherwise is nontender with palpation. : No Castro catheter in place. EXTREMITIES: No sign ificant pitting edema. LABORATORY DATA: White blood cell count is 4, hemoglobin 15, platelets 278. IMAGING: Lumbar spine x-ray: Degenerative disk disease at L5-S1. DISCHARGE MEDICATIONS: 1. Prednisone 40 mg daily for 5 additional days (this was provided as a written prescription). 2. Diazepam 5 mg 1 tablet every 6 hours as needed for muscle spasms. 3. Lidocaine patches 1 patch daily as needed for pain unrelieved by pain medications. 4. Percocet 5/325 one tablet every 4-6 hours as needed for lodrprls-ld-txmuri pain. DISCHARGE INSTRUCTIONS: I recommend that she establish with outpatient physical therapy, and I have provided her a prescription in order to do this. Otherwise, a followup visit with her primary provid er would be recommended in 1-2 weeks' time. /[id number]/MODL
[2017-10-02] MEDS ORDERED: INSULIN LISPRO 100 UNIT/ML SC SCH (21:00)
[2017-10-03] MEDS ORDERED: methylPREDNISolone 4 MG TAB PO SCH ×2 (07:30→21:00)
[2017-10-04] MEDS ORDERED: methylPREDNISolone 4 MG TAB PO SCH (07:30)
[2017-10-05] MEDS ORDERED: methylPREDNISolone 4 MG TAB PO SCH (07:30)
[2017-10-06] MEDS ORDERED: methylPREDNISolone 4 MG TAB PO SCH (07:30)
[2017-10-07] MEDS ORDERED: methylPREDNISolone 4 MG TAB PO SCH (07:30)
== END 2017-10-02 14:13 | disposition home or self-care (01) ==
LOC: F3N 22:34
PROVIDERS: ADMIT Family Medicine; ATTEND Internal Medicine
DX: M54.5 Low back pain (principal); H54.3 Unqualified visual loss, both eyes; R73.9 Hyperglycemia, unspecified; R03.0 Elevated blood-pressure reading, without diagnosis of hypertension; Z98.890 Other specified postprocedural states; Z90.710 Acquired absence of both cervix and uterus
CPT/HCPCS: 72100; 97110; 97161; 97165; G0378; 96374; J1100; J1815; J3010

== ENCOUNTER 2017-12-23 09:36 | Emergency (ER) | payer OTHER ==
--- NOTE | 2017-12-23 10:18 | EDPHY ---
H & P Stated Complaint: Severe headache, nausea and vomiting. Time Seen by Provider: 12/23/17 10:04 HPI/ROS: CHIEF COMPLAINT: Right-sided headache x2 days with nausea vomiting HISTORY OF PRESENT ILLNESS: 47-year-old female congenitally blind, no history of chronic headache, arrives via [employer], complaining of new onset right-sided headache which is waking her in the middle of the night. Associated with nausea and vomiting. It is only moderately alleviated with [id number]-nvuncoj analgesia. No gait instability. No slurred speech. No trauma to the head or neck either major or minor. No neck manipulation. Has with her and he notes no rash or lesions to her face or neck. PRIMARY CARE PROVIDER:Lian Cameron REVIEW OF SYSTEMS: A ten point review of systems was performed and is negative with the exception of the items mentioned in the HPI PAST MEDICAL & SURGICAL HISTORY: Congenital blindness. Vitamin-D deficiency. Breast reduction surgery. Raynaud's. Hyperlipidemia. Hysterectomy. SOCIAL HISTORY: nonsmoker PHYSICAL EXAM (Prior to examination, patient consented to physical exam, hands were washed and my usual and customary physical exam procedures followed) 1) GENERAL: Well-developed, well-nourished, alert and oriented. Appears to be in no acute distress. 2) HEAD: Normocephalic, atraumatic 3) HEENT: Sclera anicteric. Nasopharynx, oropharynx, clear, no lesions. Symmetrical faces. No facial, scalp or neck lesions Ears bilaterally with normal tympanic membranes. 4) NECK: Full range of motion, no meningeal signs. 5) LUNGS: Clear auscultation bilaterally, no wheezes, no rhonchi, no retractions. 6) HEART: Regular rate and rhythm, no murmur, no heave, no gallop. 7) ABDOMEN: No guarding, no rebound, no focal tenderness, negative McBurney's, negative Springer's, negative Rovsing's, negative peritoneal sign, 8) MUSCULOSKELETAL: Moving all extremities, no focal areas of tenderness, no obvious trauma. No peripheral edema or discoloration. 9) BACK: No CVA tenderness, no midline vertebral tenderness, no fluctuance, no step-off, no obvious trauma, no visual or palpable abnormality. 10) SKIN: No rash, no petechiae. 11) Psychiatric: Patient is oriented X 3, there is no agitation. 12) NEURO: Awake, alert, and oriented to person, place and time. Answers questions appropriately. There were no obvious focal neurologic abnormalities. No cerebellar dysfunction. Normal steady gait. Upper and lower extremities bilaterally with strength 5 / 5, reflexes 2+. DIFFERENTIAL DIAGNOSIS: In no particular order, including but not limited to subarachnoid hemorrhage, migraine headache, tension headache and infectious causes such as meningitis, pharyngitis and sinusitis. The patient understands that this diagnosis is provisional and can never be 100% accurate. Usual and customary warnings were given concerning the clinical impression and all the patient's questions were answered. The patient was instructed to return to the emergency department should her symptoms worsen or return, or develop any new symptoms, otherwise to followup as directed in discharge instructions. This is a partial list of diagnoses considered. These considerations are based on history, physical exam, past history and reassessment. - Personal History LMP (Females 10-55): Hysterectomy Current Tetanus Diphtheria and Acellular Pertussis (TDAP): Yes Tetanus Vaccine Date: 2008 - Medical/Surgical History Hx Asthma: No Hx Chronic Respiratory Disease: No Hx Diabetes: No Hx Cardiac Disease: Yes Hx Renal Disease: No Hx Cirrhosis: No Hx Alcoholism: No Hx HIV/AIDS: No Hx Splenectomy or Spleen Trauma: No Other PMH: Blind, reynaud's, high cholesterol, vitamin d deficiency; breast reduction; fractured Great R toe, Hysterectomy - Social History Smoking Status: Never smoked Constitutional: Initial Vital Signs Temperature (C) 36.7 C 12/23/17 09:42 Heart Rate 84 12/23/17 09:42 Respiratory Rate 18 12/23/17 09:42 Blood Pressure 188/116 H 12/23/17 09:42 O2 Sat (%) 95 12/23/17 09:42 O2 Delivery Mode Room Air Allergies/Adverse Reactions: vancomycin Allergy (Verified 10/01/17 20:21) comprises kidneys Home Medications: Medication Instructions Recorded Cholecalciferol Vit D3 [Vitamin D3 1,000 units PO DAILY 04/19/15 (*)] Multivitamins [Multivitamin (*)] 1 each PO DAILY 04/19/15 Herbals/Supplements -Info Only 1 ea PO DAILY 02/27/18 Hydrocodone/APAP 5/325 [[place] 1 tab PO Q6 PRN #5 tab 12/23/17 5/325 (RX)] Ibuprofen [Motrin (*)] 600 mg PO Q6 #15 tab 12/23/17 Medical Decision Making - Diagnostics Imaging Results: Imaging Impressions Head CT 12/23/17 10:19 Impression: 1. Normal CT brain without contrast. 2. Consider MRI of the brain, if there is continued clinical concern. Findings and recommendations discussed with Emergency Department physician, Ernestina Casey at 12:30 hour, 12/23/2017. Final report concurs with initial preliminary interpretation. Head CTA 12/23/17 10:19 Impression: Negative CT angiogram of the brain. Findings and recommendations discussed with Emergency Department, RHONDA Molina at 1300 hours, 12/23/2017. Final report concurs with initial preliminary interpretation. Images reviewed by myself ED Course/Re-evaluation: 10:16 a.m.: Patient has no history of chronic headache. Will obtain laboratory studies and perform imaging studies. 1:00 p.m.: CT angiography the brain noncontrast CT are negative per Radiology interpretation. Patient re-evaluated at this time. Remains the nonfocal exam. I think the patient can be discharged. I do not think that lumbar puncture is indicated at this time as I have a low index suspicion for subarachnoid hemorrhage. We discussed analgesia. She feels comfortable being discharged. Usual and customary discharge precautions instructions provided. I saw this patient independently based on established practice protocols. Care of patient under supervision of secondary supervising physician Dr Pitt. - Data Points Laboratory Results: Laboratory Results 12/23/17 11:05 12/23/17 11:05 12/23/17 12/23/17 12/23/17 11:05 11:05 11:05 WBC 6.71 10^3/uL 10^3/uL (3.80-9.50) RBC 5.29 10^6/uL 10^6/uL (4.18-5.33) Hgb 16.1 g/dL g/dL (12.6-16.3) Hct 47.1 % H % (38.0-47.0) MCV 89.0 fL fL (81.5-99.8) MCH 30.4 pg pg (27.9-34.1) MCHC 34.2 g/dL g/dL (32.4-36.7) RDW 12.4 % % (11.5-15.2) Plt Count 260 10^3/uL 10^3/uL (150-400) MPV 10.0 fL fL (8.7-11.7) Neut % (Auto) 69.7 % % (39.3-74.2) Lymph % (Auto) 20.4 % % (15.0-45.0) [place] % (Auto) 7.9 % % (4.5-13.0) Eos % (Auto) 1.3 % % (0.6-7.6) Baso % (Auto) 0.4 % % (0.3-1.7) Nucleat RBC Rel Count 0.0 % % (0.0-0.2) Absolute Neuts (auto) 4.67 10^3/uL 10^3/uL (1.70-6.50) Absolute Lymphs (auto) 1.37 10^3/uL 10^3/uL (1.00-3.00) Absolute Monos (auto) 0.53 10^3/uL 10^3/uL (0.30-0.80) Absolute Eos (auto) 0.09 10^3/uL 10^3/uL (0.03-0.40) Absolute Basos (auto) 0.03 10^3/uL 10^3/uL (0.02-0.10) Absolute Nucleated RBC 0.00 10^3/uL 10^3/uL (0-0.01) Immature Gran % 0.3 % % (0.0-1.1) Immature Gran # 0.02 10^3/uL 10^3/uL (0.00-0.10) Sodium 142 mEq/L mEq/L (135-145) Potassium 4.4 mEq/L mEq/L (3.3-5.0) Chloride 105 mEq/L mEq/L (97-110) Carbon Dioxide 26 mEq/l mEq/l (22-31) Anion Gap 11 mEq/L mEq/L (8-16) BUN 14 mg/dL mg/dL (7-23) Creatinine 0.8 mg/dL mg/dL (0.6-1.0) Estimated GFR > 60 Glucose 140 mg/dL H mg/dL (70-100) Calcium 9.6 mg/dL mg/dL (8.5-10.4) Beta HCG, Qual NEGATIVE Departure - Departure Disposition: Home, Routine, Self-Care Clinical Impression: Headache Qualifiers: Headache type: unspecified Headache chronicity pattern: unspecified pattern Intractability: not intractable Qualified Code(s): R51 - Headache Condition: Good Instructions: Hydrocodone/Acetaminophen (By mouth), Ibuprofen (By mouth), Acute Headache (ED) Additional Instructions: THANK YOU FOR YOUR VISIT TO OUR EMERGENCY DEPARTMENT (ED). YOU WERE SEEN TODAY BECAUSE OF A HEADACHE. YOU MAY HAVE HAD LAB TESTS, A CT SCAN, MRI OR EVEN A LUMBAR PUNCTURE (COMMONLY REFERRED TO A SPINAL TAP). WE CANNOT ALWAYS FIND THE EXACT CAUSE OF YOUR SYMPTOMS DURING YOUR VISIT TO THE ED. PLEASE FOLLOW UP WITH YOUR DOCTOR WITHIN 24 HOURS TO BE RECHECKED. RETURN TO THE ED IMMEDIATELY IF YOUR HEADACHE WORSENS, IF YOU DEVELOP A FEVER, NECK PAIN OR NECK STIFFNESS, OR IF YOU BECOME CONFUSED OR ABNORMALLY DROWSY. Referrals: Lian Cameron MD [Primary Care Provider] - 2-3 days, call for appt. Prescriptions: Hydrocodone/APAP 5/325 [[place] 5/325 (RX)] 1 tab PO Q6 PRN #5 tab PRN Reason: Pain, Severe Ibuprofen [Motrin (*)] 600 mg PO Q6 #15 tab
[2017-12-23 11:18] LABS: PLATELET COUNT 260 10^3/uL (150-400)
[2017-12-23] MEDS ORDERED: IOPAMIDOL (ISOVUE 370) 100 ML BTL IV ONE (12:01)
[2017-12-23] MEDS ORDERED: ONDANSETRON 4 MG/2 ML VIAL IVP ONE (13:44)
[2017-12-23 13:48] VITALS: BP 163/89
== END 2017-12-23 13:48 | disposition home or self-care (01) ==
DX: R51 Headache (principal)
CPT/HCPCS: Q9967

== ENCOUNTER 2018-04-06 16:21 | Emergency (ER) | payer OTHER ==
[2018-04-06 16:29] VITALS: BP 190/115
--- NOTE | 2018-04-06 16:54 | EDPHY ---
H & P Time Seen by Provider: 04/06/18 16:36 HPI/ROS: CHIEF COMPLAINT: Left leg pain HISTORY OF PRESENT ILLNESS: Patient is a 47-year-old female here with left leg pain since fall yesterday. She states she was walking with her dog and tripped over a curb and fell on her left leg. She has been able to ambulate since but reports significant left leg pain. She points to her left tibia and left groin as main source of pain. She takes no blood thinners. She denies any other injury to other extremities were head. She has no history of DVT or PE. REVIEW OF SYSTEMS: Constitutional: No fever, no chills. Eyes: No discharge. ENT: No sore throat. Cardiovascular: No chest pain, no palpitations. Respiratory: No cough, no shortness of breath. Gastrointestinal: No abdominal pain, no vomiting. Genitourinary: No hematuria. Musculoskeletal: No back pain. Skin: No rashes. Neurological: No headache. Smoking Status: Never smoked Physical Exam: General Appearance: Alert and no distress. Morbid obesity Eyes: Pupils equal and round no injection. Respiratory: Chest is nontender, lungs are clear to auscultation. Cardiac: regular rate and rhythm. Gastrointestinal: Abdomen is soft and nontender, no masses, bowel sounds normal. Musculoskeletal: Neck is supple and nontender. Extremities have full range of motion and are nontender. Skin: No open skin lesions though there is significant ecchymosis with surrounding erythema to the left lower leg. No unilateral calf swelling. Full range of motion of the hip and knee without deformity the left lower leg. Pedal pulses are strong cap refill less than 3 sec. Constitutional: Initial Vital Signs Temperature (C) 36.9 C 04/06/18 16:26 Heart Rate 83 04/06/18 16:26 Respiratory Rate 17 04/06/18 16:26 Blood Pressure 190/115 H 04/06/18 16:26 O2 Sat (%) 97 04/06/18 16:26 O2 Delivery Mode Room Air Allergies/Adverse Reactions: vancomycin Allergy (Verified 04/06/18 16:24) comprises kidneys Home Medications: Medication Instructions Recorded Cholecalciferol Vit D3 [Vitamin D3 1,000 units PO DAILY 04/19/15 (*)] Multivitamins [Multivitamin (*)] 1 each PO DAILY 04/19/15 Herbals/Supplements -Info Only 1 ea PO DAILY 09/08/17 Ibuprofen [Motrin (*)] 600 mg PO Q6 #15 tab 12/23/17 Medical Decision Making - Diagnostics Imaging Results: Imaging Impressions Tibia/Fibula X-Ray 04/06/18 16:49 Impression: Negative for fracture. Left Femur, 3 Views Clinical Indications: Pain following trauma. Findings: A fracture or other acute osseous abnormality is not identified. Bone alignment is normal. No radiopaque foreign body is seen. Impression: Left femur negative for fracture. Left Tibia/Fibula (Lower Leg), 3 Views Clinical Indications: Pain following trauma. Findings: No fracture or dislocation. No periosteal reaction. No radiopaque foreign body. Phleboliths are suspected. Impression: Left tibia and fibula negative for fracture. Femur X-Ray 04/06/18 16:50 Impression: Negative for fracture. Left Femur, 3 Views Clinical Indications: Pain following trauma. Findings: A fracture or other acute osseous abnormality is not identified. Bone alignment is normal. No radiopaque foreign body is seen. Impression: Left femur negative for fracture. Left Tibia/Fibula (Lower Leg), 3 Views Clinical Indications: Pain following trauma. Findings: No fracture or dislocation. No periosteal reaction. No radiopaque foreign body. Phleboliths are suspected. Impression: Left tibia and fibula negative for fracture. Hip X-Ray 04/06/18 16:50 Impression: Negative for fracture. Left Femur, 3 Views Clinical Indications: Pain following trauma. Findings: A fracture or other acute osseous abnormality is not identified. Bone alignment is normal. No radiopaque foreign body is seen. Impression: Left femur negative for fracture. Left Tibia/Fibula (Lower Leg), 3 Views Clinical Indications: Pain following trauma. Findings: No fracture or dislocation. No periosteal reaction. No radiopaque foreign body. Phleboliths are suspected. Impression: Left tibia and fibula negative for fracture. ED Course/Re-evaluation: Patient here with hip pain and lower leg pain after falling yesterday. X-ray reveals no fracture of the hip or lower leg. She is ambulatory neurovascular intact at time of discharge. We did discuss the possibility of DVT or cellulitis though the suspicion is extremely low for these given her injury yesterday. Differential Diagnosis: Fracture, dislocation, hip fracture, cellulitis, DVT, necrotizing fasciitis Departure - Departure Disposition: Home, Routine, Self-Care Clinical Impression: Contusion of leg, left, Hip strain Condition: Good Instructions: Contusion in Adults (ED) Additional Instructions: You're x-rays today showed no fracture or dislocation. I have very low suspicion for infection given the redness after injury yesterday. If you do developed worsening redness, swelling, pain, fever or any chest pain or shortness of breath return to the ER for further evaluation. Referrals: Lian Cameron MD [Primary Care Provider] - As per Instructions
== END 2018-04-06 18:18 | disposition home or self-care (01) ==
DX: S80.12XA Contusion of left lower leg, initial encounter (principal); S73.102A Unspecified sprain of left hip, initial encounter; W01.0XXA Fall on same level from slipping, tripping and stumbling without subsequent striking against object, initial encounter; Y93.K1 Activity, walking an animal; Y92.480 Sidewalk as the place of occurrence of the external cause; Y99.8 Other external cause status

== ENCOUNTER → 2018-05-10 | Outpatient (CLI) | payer OTHER | LOC: FIMAGING 14:42 | PROVIDERS: ATTEND Orthopaedic Surgery | DX: M79.604 Pain in right leg (principal); M79.605 Pain in left leg; M79.89 Other specified soft tissue disorders ==

== ENCOUNTER → 2018-05-25 | Outpatient (CLI) | payer OTHER | LOC: FIMAGING 16:20 | PROVIDERS: ATTEND Family Medicine | DX: Z12.31 Encounter for screening mammogram for malignant neoplasm of breast (principal) ==

== ENCOUNTER → 2018-11-08 | Outpatient (CLI) | payer OTHER | LOC: FIMAGING 13:03 | PROVIDERS: ATTEND Family Medicine | DX: M89.319 Hypertrophy of bone, unspecified shoulder (principal); M89.8X1 Other specified disorders of bone, shoulder ==

== ENCOUNTER → 2018-12-17 | Outpatient (CLI) | payer OTHER | LOC: FIMAGING 12:17 ==